=== PATIENT | male | born 1955 | race Caucasian/White ===

== ENCOUNTER 2019-07-24 12:17 | Emergency (ER) | payer OTHER ==
--- NOTE | 2019-07-24 12:47 | EDM.PDOC ---
ED HPI GENERAL MEDICAL PROBLEM - General Chief Complaint: Upper Extremity Injury/Pain Stated Complaint: RIGHT SHOULDER/POSSIBLE DISLOCATION Time Seen by Provider: 07/24/19 12:35 Source of Information: Reports: Patient History Limitations: Reports: No Limitations - History of Present Illness INITIAL COMMENTS - FREE TEXT/NARRATIVE: 63-year-old male who was doing some work on a stepladder and a limb from a tree fell and knocked the stepladder over causing the patient to fall directly on his right shoulder. He did not hit his head. There was no loss of consciousness. He has no neck or back pain. He has pain directly over his right shoulder with any kind of movement of his right shoulder he has been no chest pain or trouble breathing. No nausea or vomiting. No abdominal pain. He rates the pain as a 1/10 when it is at rest and it seems to be a stiff type pain. The pain is a 6/10 when he tries to move it. He presents here via private vehicle. This occurred approximately 11:30 AM today. He is here with his . He had no weakness or dizziness prior to this fall there were no antecedent symptoms. There are no other associated signs or symptoms. There are no other modifying factors. Onset: Today (11:30 AM) Duration: Constant Location: Reports: Upper Extremity, Right (Right shoulder) Quality: Reports: Sharp Severity: Moderate Improves with: Reports: Immobilization, Rest Worsens with: Reports: Movement Context: Reports: Trauma Associated Symptoms: Reports: No Other Symptoms Treatments [employer] LEARNING [employer] DEVELOPMENT: Reports: Other (see below) (Nothing) Right shoulder Pain Score (Numeric/FACES): 1 - Related Data Allergies Allergy/AdvReac Type Severity Reaction Status Date / Time No Known Allergies Allergy Verified 07/24/19 12:48 Home Meds: Home Meds Hydrocodone/Acetaminophen [[place] 5-325 Tablet] 1 - 2 tab PO Q6H PRN #12 tablet 07/24/19 [Rx] Past Medical History Cardiovascular History: Reports: High Cholesterol, Hypertension Genitourinary History: Reports: Renal Calculus Endocrine/Metabolic History: Reports: Diabetes, Type II - Past Surgical History Male Surgical History: Reports: Renal Calculus (With cystoscopy) Social & Family History - Tobacco Use Smoking Status *Q: Never Smoker - Alcohol Use Alcohol Use History: No - Living Situation & Occupation Living situation: Reports: , with Spouse Occupation: Employed Social History Comment: He is from [place] but has a [place] home in [place]. Review of Systems - Review of Systems Review Of Systems: See Below Constitutional: Reports: No Symptoms Eyes: Reports: No Symptoms Ears: Reports: No Symptoms Nose: Reports: No Symptoms Mouth/Throat: Reports: No Symptoms Respiratory: Reports: No Symptoms Cardiovascular: Reports: No Symptoms GI/Abdominal: Reports: No Symptoms Genitourinary: Reports: No Symptoms Musculoskeletal: Reports: Shoulder Pain (Right shoulder) Skin: Reports: No Symptoms Neurological: Reports: No Symptoms ED EXAM, GENERAL - Physical Exam Exam: See Below Exam Limited By: No Limitations General Appearance: Alert, WD/WN, Mild Distress Eye Exam: Bilateral Eye: EOMI, Normal Inspection, PERRL Ears: Normal External Exam, Hearing Grossly Normal Ear Exam: Bilateral Ear: Auricle Normal Nose: Normal Inspection, Normal Mucosa, No Blood Throat/Mouth: Normal Inspection, Normal Lips, Normal Oropharynx, Normal Voice, No Airway Compromise Head: Atraumatic, Normocephalic Respiratory/Chest: No Respiratory Distress, Lungs Clear, Normal Breath Sounds, No Accessory Muscle Use, Chest Non-Tender Cardiovascular: Normal Peripheral Pulses, Regular Rate, Rhythm, No JVD Peripheral Pulses: 2+: Radial (L), Radial (R) GI/Abdominal: Normal Bowel Sounds, Soft, Non-Tender, No Mass Back Exam: Normal Inspection, Full Range of Motion Extremities: No Pedal Edema, Normal Capillary Refill, Limited Range of Motion ( And right shoulder secondary to pain with movement) Neurological: Alert, Oriented, CN II-XII Intact, Normal Cognition, No Motor/ Sensory Deficits Skin Exam: Warm, Dry, Intact, Normal Color, No Rash Course - Vital Signs Last Recorded V/S: Last Vital Signs Temp 36.6 C 07/24/19 14:03 Pulse 74 07/24/19 14:03 Resp 16 07/24/19 14:03 BP 114/78 07/24/19 14:03 Pulse Ox 97 07/24/19 14:03 - Orders/Labs/Meds Orders: Active Orders 24 hr Category Date Time Status Shoulder Comp Rt [CR] Stat Exams 07/24/19 12:49 Taken Meds: Medications Discontinued Medications Generic Name Dose Route Start Last Admin Trade Name Freq PRN Reason Stop Dose Admin Hydrocodone Bitart/Acetaminophen 2 tab 07/24/19 12:48 07/24/19 12:53 [place] 325-5 Mg PO 07/24/19 12:49 2 tab ONETIME ONE Administration Ondansetron HCl 4 mg 07/24/19 12:48 07/24/19 12:53 Zofran Odt PO 07/24/19 12:49 4 mg ONETIME ONE Administration - Radiology Interpretation Free Text/Narrative:: Right shoulder x-ray shows no definite fracture and no dislocation. - Re-Assessments/Exams Free Text/Narrative Re-Assessment/Exam: 07/24/19 14:20: Patient's x-ray shows no definite fracture per my read and no dislocation. He does have pain with any movement of his shoulder and he cannot volitionally raise his arm above his shoulder, however, there is passive range of motion above his shoulder with his right arm despite his discomfort. I will place the patient in a sling and have him do range of motion with his right shoulder and he should let pain limit his range of motion. He needs to follow- up with his primary provider and get an orthopedic referral this week. I have given him a prescription of hydrocodone 5/325 that he may take for severe pain and he may also take ibuprofen for pain as well. Departure - Departure Time of Disposition: 14:35 Disposition: Home, Self-Care 01 Condition: Good Clinical Impression: Contusion of right shoulder, initial encounter, Internal derangement of right shoulder Fall from ladder Qualifiers: Encounter type: initial encounter Qualified Code(s): W11.XXXA - Fall on and from ladder, initial encounter - Discharge Information Prescriptions: Hydrocodone/Acetaminophen [[place] 5-325 Tablet] 1 - 2 tab PO Q6H PRN #12 tablet PRN Reason: Moderate to severe pain Instructions: Shoulder Range of Motion Exercises, How to Use a Sling, Easy-to- Read, Contusion, [id number] Referrals: Bridget Muñoz [facility] [Primary Care Provider] - Forms: ED Department Discharge Additional Instructions: The x-ray of your right shoulder showed no dislocation and no definite fracture. Use the sling for comfort and support. Begin range of motion with your right shoulder starting tomorrow. Apply ice packs intermittently to the right shoulder for the next 2-3 days. You may take ibuprofen 600-800 mg by mouth every 6-8 hours as needed for pain. Medication as prescribed for more severe pain (hydrocodone 5/325). Follow-up with your primary provider as you will need referral to see an orthopedic surgeon. Back to the emergency department for marked increase in pain, trouble breathing, coughing of blood or any other concerning sign or symptom. - My Orders Last 24 Hours: My Active Orders 07/24/19 12:49 Shoulder Comp Rt [CR] Stat - Assessment/Plan Last 24 Hours: My Active Orders 07/24/19 12:49 Shoulder Comp Rt [CR] Stat
[2019-07-24] MEDS ORDERED: Ondansetron 4 MG Tab.DIS PO ONE (12:48)
[2019-07-24] MEDS ORDERED: Acetaminophen/HYDROcodone 325-5 MG Tab PO ONE (12:48)
--- NOTE | 2019-07-25 11:49 | CR ---
INDICATION: Fall with injury to right shoulder from 6 foot ladder. RIGHT SHOULDER: Three views of the right shoulder were obtained 07/24/2019 and revealed no evidence of any acute fracture, dislocation, or other significant impairing bone or joint abnormality. Adjacent ribs appeared to be intact. MTDD
== END 2019-07-24 14:51 | disposition home or self-care (01) ==
LOC: FB.ED 12:17
DX: S40.011A Contusion of right shoulder, initial encounter (principal); M24.9 Joint derangement, unspecified; I10 Essential (primary) hypertension; E11.9 Type 2 diabetes mellitus without complications; W11.XXXA Fall on and from ladder, initial encounter
CPT/HCPCS: 73030; 82962; 99283; A9270

== ENCOUNTER 2025-04-20 23:57 | Emergency (ER) | payer MEDICARE, OTHER ==
[2025-04-21 00:40] LABS: BLOOD UREA NITROGEN,BUN 24 mg/dL (7-18); CARBON DIOXIDE,CO2 27 mmol/L (21-32); CHLORIDE,CL 104 mmol/L (100-110); CREATININE 1.4 mg/dL (0.70-1.30); EST CRCL DRUG DOSING (CG) 46.56 mL/min; ESTIMATED GFR 54 mL/min (>60); POTASSIUM,K 4.5 mmol/L (3.5-5.3); SODIUM,NA 138 mmol/L (135-145)
[2025-04-21 00:41] LABS: GLUCOSE RANDOM 405 mg/dL (80-116)
== END 2025-04-21 00:50 | disposition home or self-care (01) ==
LOC: FB.ED 23:57
DX: E11.649 Type 2 diabetes mellitus with hypoglycemia without coma (principal); E78.00 Pure hypercholesterolemia, unspecified; I10 Essential (primary) hypertension; Z79.899 Other long term (current) drug therapy
CPT/HCPCS: 36415; 80048; 82947; 99284